=== PATIENT | male | born 1965 | race Caucasian/White ===

== ENCOUNTER 2018-05-26 21:35 | Emergency (ER) | payer OTHER ==
[~2018-05-26] VITALS: Ht 180.3 cm; Wt 100.0 kg
[~2018-05-26 21:35] MED LIST: ASPI-955; ATOR20TA66 PO; CARV6.253 PO; ENOX100D5 SUBCUT; LISI10TA4 PO; METF500T PO; WARF7.5T48 PO
[2018-05-26 22:36] LABS: BASOPHILS # (AUTO) 0.1 X10'3 (0-0.2); BASOPHILS % (AUTO) 0.8 % (0-1); EOSINOPHILS # (AUTO) 0.3 X10'3 (0-0.9); EOSINOPHILS % (AUTO) 4.1 % (0-6); HEMATOCRIT 40.6 % (42.0-52.0); HEMOGLOBIN 13.8 g/dl (14.0-17.9); LYMPHOCYTES # (AUTO) 1.8 X10'3 (1.1-4.8); LYMPHOCYTES % (AUTO) 25.2 % (21-51); MEAN CORPUSCULAR HEMOGLOBIN 31.5 PG (27.0-31.0); MEAN CORPUSCULAR HGB CONC 33.9 % (33.0-36.5); MEAN CORPUSCULAR VOLUME 92.8 FL (78-98); MEAN PLATELET VOLUME 8.5 FL (7.4-10.4); MONOCYTES # (AUTO) 0.8 X10'3 (0-0.9); MONOCYTES % (AUTO) 11.1 % (2-12); NEUTROPHILS # (AUTO) 4.1 X10'3 (1.8-7.7); NEUTROPHILS % (AUTO) 58.8 % (42-75); PLATELET COUNT 160 X10'3 (140-440); RED BLOOD COUNT 4.37 X10'6 (4.70-6.10); RED CELL DISTRIBUTION WIDTH 14.2 % (11.5-14.5)
[2018-05-26 22:49] LABS: INR 3.2 INR; PROTHROMBIN TIME 30.8 SECONDS (9.0-12.0)
[2018-05-26] MEDS ORDERED: phytonadione inj. 1 MG in normal saline 100ml IV soln 99.9 ML IV ONE (23:00)
[2018-05-26] MEDS ORDERED: phytonadione 10 MG/1 ML amp SQ ONE (23:20)
[2018-05-27] VITALS: BP 132/65
== END 2018-05-27 00:03 | disposition home or self-care (01) ==
LOC: ER 21:35
DX: R79.1 Abnormal coagulation profile (principal); I10 Essential (primary) hypertension; E11.9 Type 2 diabetes mellitus without complications; F41.9 Anxiety disorder, unspecified; Z86.73 Personal history of transient ischemic attack (TIA), and cerebral infarction without residual deficits; Z88.1 Allergy status to other antibiotic agents
CPT/HCPCS: 36415; 85025; 85610; 96372; 99283; J3430

== ENCOUNTER 2019-04-19 17:25 | Emergency (ER) | payer OTHER ==
[~2019-04-19] VITALS: Ht 180.3 cm; Wt 104.5 kg
[2019-04-19 18:17] LABS: BASOPHILS % (AUTO) 0.5 % (0-1); EOSINOPHILS # (AUTO) 0.2 X10'3 (0-0.9); EOSINOPHILS % (AUTO) 3.6 % (0-6); HEMATOCRIT 43.7 % (42.0-52.0); HEMOGLOBIN 14.8 g/dl (14.0-17.9); LYMPHOCYTES % (AUTO) 29.5 % (21-51); MEAN CORPUSCULAR HEMOGLOBIN 32.1 PG (27.0-31.0); MEAN CORPUSCULAR HGB CONC 33.9 g/dL (33.0-36.5); MEAN CORPUSCULAR VOLUME 94.8 FL (78-98); MEAN PLATELET VOLUME 8.3 FL (7.4-10.4); MONOCYTES # (AUTO) 0.9 X10'3 (0-0.9); MONOCYTES % (AUTO) 13.3 % (2-12); NEUTROPHILS # (AUTO) 3.5 X10'3 (1.8-7.7); NEUTROPHILS % (AUTO) 53.1 % (42-75); PLATELET COUNT 185 X10'3 (140-440); RED BLOOD COUNT 4.61 X10'6 (4.70-6.10); RED CELL DISTRIBUTION WIDTH 13.7 % (11.5-14.5); WHITE BLOOD COUNT 6.7 X10'3 (4.5-11.0)
[2019-04-19 18:30] LABS: PARTIAL THROMBOPLASTIN TIME 39 SECONDS (22-32)
[2019-04-19 18:34] LABS: ALANINE AMINOTRANSFERASE 25 U/L (12-78); ALBUMIN 3.8 G/DL (3.4-5.0); ALKALINE PHOSPHATASE 65 IU/L (46-116); ANION GAP 7 (8-16); ASPARTATE AMINO TRANSFERASE 20 U/L (10-37); BILIRUBIN,TOTAL 0.4 MG/DL (0.1-1.0); BLOOD UREA NITROGEN 14 MG/DL (7-18); BUN/CREATININE RATIO 17.3 (5.4-32.0); CHLORIDE 103 MMOL/L (99-107); CREATININE 0.81 MG/DL (0.60-1.10); GLUCOSE 160 MG/DL (70-104); POTASSIUM 4.1 MMOL/L (3.5-5.1); SODIUM 138 MMOL/L (135-145); TOTAL CARBON DIOXIDE 27.8 MMOL/L (24-32); TOTAL PROTEIN 7.7 G/DL (6.4-8.2); eGFR > 90 ML/MIN
[2019-04-19 18:38] LABS: CALCIUM 8.9 MG/DL (8.5-10.1)
[2019-04-19 20:22] VITALS: BP 148/84
== END 2019-04-19 20:21 | disposition home or self-care (01) ==
LOC: ER 17:26
DX: I48.20 Chronic atrial fibrillation, unspecified (principal); I10 Essential (primary) hypertension; E11.9 Type 2 diabetes mellitus without complications; Z86.73 Personal history of transient ischemic attack (TIA), and cerebral infarction without residual deficits; Z79.899 Other long term (current) drug therapy; Z79.01 Long term (current) use of anticoagulants; Z88.1 Allergy status to other antibiotic agents
CPT/HCPCS: 36415; 71045; 80053; 84484; 85025; 85610; 85730; 93005; 99284

== ENCOUNTER 2019-06-04 08:40 | Emergency (ER) | payer OTHER ==
[~2019-06-04] VITALS: Ht 180.3 cm; Wt 104.5 kg
[2019-06-04] MEDS ORDERED: TETanus/Pertussis (Acell)/Diphther VAC/PF (Tdap-Adult) 0.5ml syringe IMVAC ONE (09:10)
[2019-06-04] MEDS ORDERED: mupirocin 2% ointment 22GM TP ONE (09:10)
[2019-06-04 09:13] LABS: BASOPHILS # (AUTO) 0.1 X10'3 (0-0.2); BASOPHILS % (AUTO) 0.7 % (0-1); EOSINOPHILS # (AUTO) 0.2 X10'3 (0-0.9); EOSINOPHILS % (AUTO) 2.4 % (0-6); HEMATOCRIT 42.8 % (42.0-52.0); HEMOGLOBIN 14.4 g/dl (14.0-17.9); LYMPHOCYTES # (AUTO) 1.2 X10'3 (1.1-4.8); LYMPHOCYTES % (AUTO) 16.6 % (21-51); MEAN CORPUSCULAR HEMOGLOBIN 31.5 PG (27.0-31.0); MEAN CORPUSCULAR HGB CONC 33.7 g/dL (33.0-36.5); MEAN CORPUSCULAR VOLUME 93.6 FL (78-98); MEAN PLATELET VOLUME 8.2 FL (7.4-10.4); MONOCYTES % (AUTO) 13.7 % (2-12); NEUTROPHILS % (AUTO) 66.6 % (42-75); PLATELET COUNT 202 X10'3 (140-440); RED BLOOD COUNT 4.57 X10'6 (4.70-6.10); RED CELL DISTRIBUTION WIDTH 13.6 % (11.5-14.5); WHITE BLOOD COUNT 7.5 X10'3 (4.5-11.0)
[2019-06-04 09:22] VITALS: BP 133/104
[2019-06-04 09:26] LABS: ALANINE AMINOTRANSFERASE 38 U/L (12-78); ALBUMIN 3.8 G/DL (3.4-5.0); ALBUMIN/GLOBULIN RATIO 0.9 (1.1-1.5); ALKALINE PHOSPHATASE 80 IU/L (46-116); ANION GAP 5 (8-16); ASPARTATE AMINO TRANSFERASE 17 U/L (10-37); BILIRUBIN,TOTAL 0.7 MG/DL (0.1-1.0); BLOOD UREA NITROGEN 12 MG/DL (7-18); BUN/CREATININE RATIO 12.9 (5.4-32.0); CALCIUM 9.1 MG/DL (8.5-10.1); CHLORIDE 104 MMOL/L (99-107); CREATININE 0.93 MG/DL (0.60-1.10); GLUCOSE 170 MG/DL (70-104); POTASSIUM 4.1 MMOL/L (3.5-5.1); SODIUM 142 MMOL/L (135-145); TOTAL CARBON DIOXIDE 32.6 MMOL/L (24-32); TOTAL PROTEIN 8.2 G/DL (6.4-8.2); eGFR 85 ML/MIN
--- NOTE | 2019-06-04 09:42 | NUR ---
visitor at bedside.
[2019-06-04] MEDS ORDERED: SULF1TAB49 PO (09:57)
[2019-06-04] MEDS ORDERED: MUPI22OI30 TP (09:57)
[2019-06-04] MEDS ORDERED: AMOX-580 PO (09:57)
== END 2019-06-04 10:12 | disposition home or self-care (01) ==
LOC: ER 08:40
DX: S91.102A Unspecified open wound of left great toe without damage to nail, initial encounter (principal); E11.42 Type 2 diabetes mellitus with diabetic polyneuropathy; I48.91 Unspecified atrial fibrillation; I10 Essential (primary) hypertension; F41.9 Anxiety disorder, unspecified; Z86.73 Personal history of transient ischemic attack (TIA), and cerebral infarction without residual deficits; Z88.1 Allergy status to other antibiotic agents; Z79.01 Long term (current) use of anticoagulants; Z79.84 Long term (current) use of oral hypoglycemic drugs; Z79.899 Other long term (current) drug therapy; X58.XXXA Exposure to other specified factors, initial encounter; Y93.89 Activity, other specified; Y92.89 Other specified places as the place of occurrence of the external cause; Y99.8 Other external cause status
CPT/HCPCS: 36415; 73660; 80053; 85025; 90471; 90715; 99284

== ENCOUNTER 2022-01-23 15:23 | Emergency (ER) | payer SELFPAY ==
[~2022-01-23] VITALS: Ht 180.3 cm; Wt 106.8 kg
[~2022-01-23 15:23] MED LIST changes: -ASPI-955; +ASPI-955 PO; +LISI10TA27 PO; -LISI10TA4 PO
[2022-01-23 15:28] VITALS: BP 174/64
[2022-01-24] MEDS ORDERED: METF-438 PO (15:04)
[2022-01-24] MEDS ORDERED: LISI20TA28 PO (15:04)
[2022-01-24] MEDS ORDERED: ATOR10TA70 PO (15:04)
[2022-01-24] MEDS ORDERED: CARV6.2553 PO (15:04)
[2022-01-24] MEDS ORDERED: WARF4TAB69 PO (15:34)
[2022-01-24] MEDS ORDERED: WARF1TAB83 PO (15:34)
[2022-01-24] MEDS ORDERED: OMEG1CAP45 PO (15:57)
[2022-01-24] MEDS ORDERED: OMEG1CAP13 PO (15:57)
== END 2022-01-24 00:52 | disposition left against medical advice (07) ==
LOC: ER 15:24
DX: R60.0 Localized edema (principal); Z53.21 Procedure and treatment not carried out due to patient leaving prior to being seen by health care provider

== ENCOUNTER 2022-01-24 08:16 | Inpatient (IN) | payer OTHER ==
[~2022-01-24] VITALS: Ht 180.3 cm; Wt 106.8 kg
[2022-01-24] MEDS ORDERED: acetaminophen 325mg tablet PO STA (10:47)
[2022-01-24] MEDS ORDERED: normal saline 1000ML IV soln IV ONE (10:50)
[2022-01-24] MEDS ORDERED: vancomycin/NS 1 GM ADD-VANTAGE 250 ML IV ONE (10:50)
[2022-01-24] MEDS ORDERED: piperacillin/tazo 3.375gm/50ml 50 ML IV ONE (10:50)
[2022-01-24 11:33] LABS: BASOPHILS % (AUTO) 0.2 % (0-1); EOSINOPHILS # (AUTO) 0.2 X10'3 (0-0.9); EOSINOPHILS % (AUTO) 2.1 % (0-6); HEMATOCRIT 41.2 % (42.0-52.0); LYMPHOCYTES # (AUTO) 0.9 X10'3 (1.1-4.8); LYMPHOCYTES % (AUTO) 10.1 % (21-51); MEAN CORPUSCULAR HEMOGLOBIN 31.8 PG (27.0-31.0); MEAN CORPUSCULAR HGB CONC 34.1 g/dL (33.0-36.5); MEAN CORPUSCULAR VOLUME 93.3 FL (78-98); MEAN PLATELET VOLUME 7.7 FL (7.4-10.4); MONOCYTES # (AUTO) 1.2 X10'3 (0-0.9); MONOCYTES % (AUTO) 13.1 % (2-12); NEUTROPHILS # (AUTO) 6.7 X10'3 (1.8-7.7); NEUTROPHILS % (AUTO) 74.5 % (42-75); PLATELET COUNT 216 X10'3 (140-440); RED BLOOD COUNT 4.42 X10'6 (4.70-6.10)
[2022-01-24 11:56] LABS: ALANINE AMINOTRANSFERASE 24 U/L (12-78); ALBUMIN 3.5 G/DL (3.4-5.0); ALBUMIN/GLOBULIN RATIO 0.7 (1.1-1.5); ALKALINE PHOSPHATASE 78 IU/L (46-116); ANION GAP 9 (8-16); ASPARTATE AMINO TRANSFERASE 15 U/L (10-37); BILIRUBIN,TOTAL 0.6 MG/DL (0.1-1.0); BLOOD UREA NITROGEN 13 MG/DL (7-18); BUN/CREATININE RATIO 14.1 (5.4-32.0); CALCIUM 9.5 MG/DL (8.5-10.1); CHLORIDE 97 MMOL/L (99-107); CREATININE 0.92 MG/DL (0.60-1.10); GLUCOSE 225 MG/DL (70-104); POTASSIUM 3.9 MMOL/L (3.5-5.1); SODIUM 136 MMOL/L (135-145); TOTAL CARBON DIOXIDE 29.8 MMOL/L (24-32); TOTAL PROTEIN 8.5 G/DL (6.4-8.2); eGFR 85 ML/MIN
[2022-01-24 12:20] LABS: C-REACTIVE PROTEIN 10.12 MG/DL (0.0-0.5)
[2022-01-24] MEDS ORDERED: potassium CL 10mEq/100ml bag 100 ML IV PRN (13:30)
[2022-01-24] MEDS ORDERED: ondansetron/PF 4mg/2ml inj IV PRN (13:30)
[2022-01-24] MEDS ORDERED: mag hydrox/Alum hydrox/simeth 30ml oral suspension PO PRN (13:30)
[2022-01-24] MEDS ORDERED: morphine 2 MG/ML inj. syringe IV PRN ×2 (13:30)
[2022-01-24] MEDS ORDERED: magnesium 2GM in 50ml NS 50 ML IV PRN (13:30)
[2022-01-24] MEDS ORDERED: POTASSIUM BICARB 20meq eff tab 20 MEQ TABLET.EFF PO PRN (13:30)
[2022-01-24] MEDS ORDERED: magnesium Cl slow-release 64mg tablet PO PRN (13:30)
[2022-01-24] MEDS ORDERED: magnesium hydroxide 30ml (MOM) UD suspension PO PRN (13:30)
[2022-01-24] MEDS ORDERED: acetaminophen 325mg tablet PO PRN (13:30)
[2022-01-24] MEDS ORDERED: magnesium 4gm in 100ml NS 100 ML IV PRN (13:30)
[2022-01-24] MEDS: normal saline 1000ml 1,000 ML IV SCH (14:04)
--- NOTE | 2022-01-24 14:27 | NUR ---
Report given to CESAR Pate on the Ortho Unit.
[2022-01-24 14:38] LABS: MAGNESIUM 1.6 MG/DL (1.5-2.4); POTASSIUM 3.6 MMOL/L (3.5-5.1)
[2022-01-24 14:50] VITALS: BP 169/110
[2022-01-24] MEDS ORDERED: METF-438 PO (15:04)
[2022-01-24] MEDS ORDERED: LISI20TA28 PO (15:04)
[2022-01-24] MEDS ORDERED: ATOR10TA70 PO (15:04)
[2022-01-24] MEDS ORDERED: CARV6.2553 PO (15:04)
[2022-01-24 15:15] VITALS: BP 150/78
[2022-01-24] MEDS ORDERED: WARF4TAB69 PO (15:34)
[2022-01-24] MEDS ORDERED: WARF1TAB83 PO (15:34)
[2022-01-24] MEDS ORDERED: OMEG1CAP13 PO (15:57)
[2022-01-24] MEDS ORDERED: OMEG1CAP45 PO (15:57)
[2022-01-24 18:00] VITALS: BP 165/89
--- NOTE | 2022-01-24 18:00 | NUR ---
CLINICAL TRIAL EDUCATOR documentation: I have reviewed and agree with all interventions, assessments performed and documented by manpreet Aguilar LVN.
[2022-01-24] MEDS: levoFLOXACIN-Levaquin 750MG/D5 150 ML IV SCH (18:09)
--- NOTE | 2022-01-24 18:46 | NUR ---
Problems reprioritized. Patient report given, questions answered & plan of care reviewed with CESAR Verdin.
[2022-01-24] MEDS: docusate sod 100mg capsule PO SCH (20:00)
[2022-01-24] MEDS: K and/or MAG REPLACEMENT MC SCH (20:00)
[2022-01-24] MEDS: aspirin 81mg, enteric-coated 1 TAB TABLET.DR PO SCH (20:12)
[2022-01-24] MEDS: atorvastatin 10mg tablet PO SCH (20:12)
[2022-01-24] MEDS: carvedilol 6.25mg tablet PO SCH (20:12)
[2022-01-24 20:15] VITALS: BP 146/82
[2022-01-24] MEDS ORDERED: dextrose 50%-water 50ml dispensing syringe IV PRN ×2 (22:05)
[2022-01-24] MEDS ORDERED: DEXTROSE 15 GM of carb/4 tabs (each vial/BOTTLE has 4 tablets) PO PRN ×2 (22:05)
[2022-01-24] MEDS ORDERED: glucagon, human recombinant 1mg kit SUBCUT PRN (22:05)
[2022-01-24] MEDS ORDERED: MESSAGE TO PHARMACY PO ONE (22:05)
[2022-01-24] MEDS: insulin glargine (Lantus) pen - multi-dose SQ SCH (23:01)
[2022-01-25] VITALS (20 sets, daily range): BP systolic 140–177; BP diastolic 81–106
[2022-01-25] MEDS: vancomycin/NS 1 GM ADD-VANTAGE 250 ML IV SCH ×2 (00:25→13:17)
[2022-01-25] MEDS: normal saline 1000ml 1,000 ML IV SCH ×3 (00:25→20:09)
--- NOTE | 2022-01-25 06:31 | NUR ---
Problems reprioritized. Patient report given, questions answered & plan of care reviewed with Tasia GUERRERO.
[2022-01-25] MEDS: enoxaparin 40mg/0.4ml syringe SUBCUT SCH (08:00)
[2022-01-25] MEDS: levoFLOXACIN-Levaquin 750MG/D5 150 ML IV SCH (08:04)
[2022-01-25] MEDS: OMEGA-3/DHA/EPA/FISH OIL 1 EACH CAPSULE.DR PO SCH (08:04)
[2022-01-25] MEDS: lisinopril 20mg tablet PO SCH (08:05)
[2022-01-25] MEDS: carvedilol 6.25mg tablet PO SCH ×2 (08:06→20:03)
[2022-01-25] MEDS: docusate sod 100mg capsule PO SCH ×2 (08:07→20:03)
[2022-01-25 09:09] LABS: BASOPHILS % (AUTO) 0.4 % (0-1); EOSINOPHILS # (AUTO) 0.2 X10'3 (0-0.9); EOSINOPHILS % (AUTO) 2.7 % (0-6); HEMOGLOBIN 12.1 g/dl (14.0-17.9); MEAN CORPUSCULAR HEMOGLOBIN 31.3 PG (27.0-31.0); MEAN CORPUSCULAR HGB CONC 33.5 g/dL (33.0-36.5); MEAN CORPUSCULAR VOLUME 93.4 FL (78-98); MONOCYTES # (AUTO) 0.9 X10'3 (0-0.9); MONOCYTES % (AUTO) 12.3 % (2-12); NEUTROPHILS % (AUTO) 70.6 % (42-75); PLATELET COUNT 198 X10'3 (140-440); RED BLOOD COUNT 3.86 X10'6 (4.70-6.10); WHITE BLOOD COUNT 7.1 X10'3 (4.5-11.0)
[2022-01-25 09:16] LABS: ALBUMIN 2.7 G/DL (3.4-5.0); ANION GAP 9 (8-16); BLOOD UREA NITROGEN 7 MG/DL (7-18); CALCIUM 7.9 MG/DL (8.5-10.1); CHLORIDE 101 MMOL/L (99-107); CREATININE 0.78 MG/DL (0.60-1.10); GLUCOSE 153 MG/DL (70-104); MAGNESIUM 1.6 MG/DL (1.5-2.4); POTASSIUM 3.6 MMOL/L (3.5-5.1); SODIUM 135 MMOL/L (135-145); TOTAL CARBON DIOXIDE 25.4 MMOL/L (24-32); eGFR > 90 ML/MIN
[2022-01-25] MEDS: K and/or MAG REPLACEMENT MC SCH ×2 (09:30→20:00)
[2022-01-25] MEDS: insulin Lispro (HumaLOG) vial - multi-dose SQ SCH ×2 (09:39→19:10)
--- NOTE | 2022-01-25 14:30 | NUR ---
Pt to OR at 1430.
--- NOTE | 2022-01-25 14:42 | NUR ---
[facility] Nursing consult request received for evaluation of left foot wound. Deferred secondary to planned surgical intervention w/Dr. Miguel today.
[2022-01-25] MEDS ORDERED: morphine 2 MG/ML inj. syringe IV PRN (14:55)
[2022-01-25] MEDS ORDERED: morphine 4 MG/ML inj SYRINge IV PRN (14:55)
[2022-01-25] MEDS ORDERED: ondansetron/PF 4mg/2ml inj IV PRN (14:55)
[2022-01-25] MEDS ORDERED: meperidine/PF 25mg/ml syringe IV PRN ×3 (14:55)
[2022-01-25] MEDS ORDERED: ringers solution, lacted 1,000 ML IV SCH (14:55)
[2022-01-25] MEDS ORDERED: proCHLORperazine 10 MG/2 ml inj IV PRN (14:55)
[2022-01-25] MEDS ORDERED: bacitracin 15gm ointment TP ONE (14:59)
--- NOTE | 2022-01-25 15:10 | NUR ---
DM Consult: Pt hx T2DM A1C 7.8% takes metformin at home admit DX L foot cellulitis, likely osteomyelitis L great toe w/ 4th toe abscess per EMR. Currently NPO for OR today for L hallux vs partial 1st ray amputation per MD note. Pt hx non-healing wound to L great toe past 10 years likely influencing A1C. Pt would benefit from DM ed once appropriate post-op prior to discharge. Addendum: 01/25/22 at [address] Amended: Links added.
[2022-01-25] MEDS ORDERED: sevoflurane 250ml liquid IH ONE (15:11)
[2022-01-25] MEDS ORDERED: fentaNYL/PF 50MCG/1 ML 2ML syringe ONE (15:11)
[2022-01-25] MEDS ORDERED: midazolam 1 mg/ML 2ml injection ONE (15:12)
[2022-01-25] MEDS ORDERED: propofol inj 20 ML IV ONE (15:12)
--- NOTE | 2022-01-25 16:33 | NUR ---
Received from OR via ORTHO BED WITH [facility] , accompanied by Anesthesiologist JAMAL and report given by Anesthesiolgist.PATIENT WITH 20GPIV IN RIGHT UE RUNNING LR AT 100. LEFT FOOT WITH DIAMANTE BANDAGE PRESENT. PATIENT WITH TOES EXPOSED AND WITH + CAP REFILL TO TOES. ELEVATED FOOT OF BD UPON ARRIVAL. VSS/ 10L MASK ON WITH 100% SATURATIONS. Addendum: 01/25/22 at 1642 by Luis Alfredo Gatica RN, RN Amended: Links added.
--- NOTE | 2022-01-25 17:09 | NUR ---
BG OF 126 IN RECOVERY ROOM Addendum: 01/25/22 at 1709 by Luis Alfredo Gatica RN RN Amended: Links added.
[2022-01-25] MEDS ORDERED: labetalol 20mg/4ml (5mg/ml) syringe IV PRN (17:10)
[2022-01-25] MEDS ORDERED: ipratropium/albuterol 3ml nebule NEB PRN (17:25)
--- NOTE | 2022-01-25 17:53 | NUR ---
CARE OF PATIENT AND REPORT HAS BEEN CALLED. ALL QUESTIONS ANSWERED TO ACCEPTING RN. PATIENT HAS MET ALL CRITERIA FOR TRANSFER ORTHO FLOOR. VSS. DRESSINGS INTACT. BED LOW, CALL LIGHT PRESENT AND 2 RAILS UP. RN PRESENT TO ACCEPT. VSS MUCH LESS COUGHING AT TIME OF TRANSFER. FOOT OF BED GATCHED. NO DRAINAGE PRESENT TO LEFT FOOT. DENIES PAIN. 93-94% SATURATIONS ON 4LPM. CARE ASSUMED BY SHARON Addendum: 01/25/22 at 1806 by Luis Alfredo Laws - CESAR RN Amended: Links added.
--- NOTE | 2022-01-25 18:15 | NUR ---
Report was received via telephone,and pt received back to room 4014B at 1750 accompanied by CESAR Lobato (RR). VS on return = T 99.6, HR 83, RR 16, 93% 4L/NC, BP 162/84, 0 pain. Pt A&Ox4 and conversing, states he is hungry and denies pain. Pt described upper R chest w/ "rattley" sensation w/ expiration matching Luis Alfredo's report from RR. L foot is in open splint/cast w/ 2nd and 3rd toes visible, which have moderate [employer]. Report given to oncoming nurse CESAR Verdin.
--- NOTE | 2022-01-25 18:30 | NUR ---
Patient report given, questions answered & plan of care reviewed with CESAR Verdin.
[2022-01-25] MEDS: atorvastatin 10mg tablet PO SCH (20:03)
[2022-01-25] MEDS: aspirin 81mg, enteric-coated 1 TAB TABLET.DR PO SCH (20:03)
[2022-01-25] MEDS ORDERED: insulin glargine (Lantus) pen - multi-dose SQ SCH (21:00)
[2022-01-25] MEDS: insulin glargine (Lantus) pen - multi-dose SQ SCH (21:17)
[2022-01-25] MEDS ORDERED: HYDROcodone/acetaminophen 10/325mg tab PO PRN (21:45)
[2022-01-25] MEDS: HYDROcodone/acetaminophen 5mg/325mg tablet PO PRN (21:54)
[2022-01-26] MEDS: vancomycin/NS 1 GM ADD-VANTAGE 250 ML IV SCH ×2 (00:54→12:22)
[2022-01-26 02:00] VITALS: BP 123/69
--- NOTE | 2022-01-26 03:35 | NUR ---
I have reviewed and agree with all interventions, assessments performed and documented by Moira ORTIZ.
[2022-01-26] MEDS: HYDROcodone/acetaminophen 5mg/325mg tablet PO PRN ×2 (04:18→12:10)
[2022-01-26 06:00] VITALS: BP 161/95
--- NOTE | 2022-01-26 06:40 | NUR ---
Problems reprioritized. Patient report given, questions answered & plan of care reviewed with Sue GUERRERO.
[2022-01-26 06:58] LABS: BASOPHILS % (AUTO) 0.3 % (0-1); EOSINOPHILS # (AUTO) 0.1 X10'3 (0-0.9); EOSINOPHILS % (AUTO) 1.4 % (0-6); HEMATOCRIT 35.4 % (42.0-52.0); HEMOGLOBIN 12.2 g/dl (14.0-17.9); LYMPHOCYTES # (AUTO) 0.8 X10'3 (1.1-4.8); LYMPHOCYTES % (AUTO) 9.8 % (21-51); MEAN CORPUSCULAR HEMOGLOBIN 31.7 PG (27.0-31.0); MEAN CORPUSCULAR HGB CONC 34.5 g/dL (33.0-36.5); MEAN PLATELET VOLUME 7.6 FL (7.4-10.4); MONOCYTES # (AUTO) 1.1 X10'3 (0-0.9); MONOCYTES % (AUTO) 13.1 % (2-12); NEUTROPHILS # (AUTO) 6.5 X10'3 (1.8-7.7); NEUTROPHILS % (AUTO) 75.4 % (42-75); PLATELET COUNT 200 X10'3 (140-440); RED BLOOD COUNT 3.85 X10'6 (4.70-6.10); RED CELL DISTRIBUTION WIDTH 13.9 % (11.5-14.5); WHITE BLOOD COUNT 8.6 X10'3 (4.5-11.0)
[2022-01-26 07:13] LABS: ALBUMIN 2.8 G/DL (3.4-5.0); ANION GAP 11 (8-16); BLOOD UREA NITROGEN 8 MG/DL (7-18); CALCIUM 8.1 MG/DL (8.5-10.1); CHLORIDE 104 MMOL/L (99-107); CREATININE 0.73 MG/DL (0.60-1.10); GLUCOSE 133 MG/DL (70-104); MAGNESIUM 1.6 MG/DL (1.5-2.4); POTASSIUM 3.5 MMOL/L (3.5-5.1); SODIUM 139 MMOL/L (135-145); TOTAL CARBON DIOXIDE 24.4 MMOL/L (24-32); eGFR > 90 ML/MIN
[2022-01-26] MEDS: levoFLOXACIN-Levaquin 750MG/D5 150 ML IV SCH (07:53)
[2022-01-26] MEDS: carvedilol 6.25mg tablet PO SCH ×2 (07:54→21:23)
[2022-01-26] MEDS: OMEGA-3/DHA/EPA/FISH OIL 1 EACH CAPSULE.DR PO SCH (07:54)
[2022-01-26] MEDS: enoxaparin 40mg/0.4ml syringe SUBCUT SCH (07:54)
[2022-01-26] MEDS: docusate sod 100mg capsule PO SCH ×2 (07:54→21:23)
[2022-01-26] MEDS: lisinopril 20mg tablet PO SCH (07:55)
[2022-01-26] MEDS: K and/or MAG REPLACEMENT MC SCH ×2 (08:00→20:00)
[2022-01-26] MEDS: normal saline 1000ml 1,000 ML IV SCH (08:03)
[2022-01-26] MEDS: insulin Lispro (HumaLOG) vial - multi-dose SQ SCH ×3 (08:53→19:59)
[2022-01-26] MEDS ORDERED: benzocaine/menthol oral lozeng 1 EACH BOX MM PRN (09:45)
[2022-01-26] MEDS ORDERED: furosemide 40mg/4ml inj IV ONE (09:45)
[2022-01-26 10:00] VITALS: BP 141/86
[2022-01-26] MEDS ORDERED: HALLS - SOOTHE MENTHOL 1.8 MG cough drop LOZENGE MM PRN (10:44)
[2022-01-26] MEDS ORDERED: VANCOMYCIN LEVEL IV ONE (12:30)
[2022-01-26 14:48] VITALS: BP 147/83
[2022-01-26] MEDS ORDERED: zolpidem 5mg tablet PO PRN (17:25)
[2022-01-26] MEDS: aspirin 81mg, enteric-coated 1 TAB TABLET.DR PO SCH (21:23)
[2022-01-26] MEDS: atorvastatin 10mg tablet PO SCH (21:23)
[2022-01-26] MEDS: insulin glargine (Lantus) pen - multi-dose SQ SCH (21:35)
[2022-01-27] MEDS: vancomycin 1,750 MG in NS 350ml IV soln IV SCH ×2 (00:20→15:35)
[2022-01-27 06:00] VITALS: BP 184/101
--- NOTE | 2022-01-27 06:41 | NUR ---
Problems reprioritized. Patient report given, questions answered & plan of care reviewed with CARLA GUERRERO.
[2022-01-27 06:56] LABS: ALBUMIN 2.8 G/DL (3.4-5.0); ANION GAP 10 (8-16); BLOOD UREA NITROGEN 8 MG/DL (7-18); CALCIUM 7.7 MG/DL (8.5-10.1); CHLORIDE 102 MMOL/L (99-107); CREATININE 0.73 MG/DL (0.60-1.10); GLUCOSE 146 MG/DL (70-104); MAGNESIUM 1.7 MG/DL (1.5-2.4); POTASSIUM 3.1 MMOL/L (3.5-5.1); SODIUM 136 MMOL/L (135-145); TOTAL CARBON DIOXIDE 23.8 MMOL/L (24-32); eGFR > 90 ML/MIN
[2022-01-27 07:05] LABS: BASOPHILS % (AUTO) 0.2 % (0-1); EOSINOPHILS # (AUTO) 0.1 X10'3 (0-0.9); EOSINOPHILS % (AUTO) 0.8 % (0-6); HEMATOCRIT 35.8 % (42.0-52.0); HEMOGLOBIN 12.2 g/dl (14.0-17.9); LYMPHOCYTES # (AUTO) 0.9 X10'3 (1.1-4.8); LYMPHOCYTES % (AUTO) 11.1 % (21-51); MEAN CORPUSCULAR HEMOGLOBIN 31.4 PG (27.0-31.0); MEAN CORPUSCULAR VOLUME 92.1 FL (78-98); MEAN PLATELET VOLUME 8.1 FL (7.4-10.4); MONOCYTES # (AUTO) 1.1 X10'3 (0-0.9); MONOCYTES % (AUTO) 14.4 % (2-12); NEUTROPHILS # (AUTO) 5.7 X10'3 (1.8-7.7); NEUTROPHILS % (AUTO) 73.5 % (42-75); PLATELET COUNT 223 X10'3 (140-440); RED BLOOD COUNT 3.89 X10'6 (4.70-6.10); RED CELL DISTRIBUTION WIDTH 13.7 % (11.5-14.5); WHITE BLOOD COUNT 7.8 X10'3 (4.5-11.0)
[2022-01-27] MEDS: K and/or MAG REPLACEMENT MC SCH ×2 (08:00→20:00)
[2022-01-27] MEDS: OMEGA-3/DHA/EPA/FISH OIL 1 EACH CAPSULE.DR PO SCH (08:07)
[2022-01-27] MEDS: lisinopril 20mg tablet PO SCH (08:08)
[2022-01-27] MEDS: docusate sod 100mg capsule PO SCH ×2 (08:08→21:23)
[2022-01-27] MEDS: POTASSIUM BICARB 20meq eff tab 20 MEQ TABLET.EFF PO PRN ×3 (08:08→17:45)
[2022-01-27] MEDS: carvedilol 6.25mg tablet PO SCH ×2 (08:08→21:22)
[2022-01-27] MEDS: enoxaparin 40mg/0.4ml syringe SUBCUT SCH (08:10)
[2022-01-27] MEDS: insulin Lispro (HumaLOG) vial - multi-dose SQ SCH ×3 (08:54→19:02)
--- NOTE | 2022-01-27 09:21 | NUR ---
Provided pt w/ written and verbal DM ed w/ RD contact info Addendum: 01/27/22 at [address] Amended: Links added.
[2022-01-27] MEDS: levoFLOXACIN-Levaquin 750MG/D5 150 ML IV SCH (09:27)
[2022-01-27 10:00] VITALS: BP 125/73
[2022-01-27] MEDS ORDERED: MESSAGE TO NURSING IV ONE (14:05)
[2022-01-27] MEDS ORDERED: furosemide 40mg/4ml inj IV ONE (15:55)
[2022-01-27 17:30] VITALS: BP 146/81
[2022-01-27] MEDS ORDERED: magnesium 4gm in 100ml NS 100 ML IV PRN (17:30)
[2022-01-27] MEDS ORDERED: potassium CL 10mEq/100ml bag 100 ML IV PRN (17:30)
[2022-01-27] MEDS ORDERED: magnesium Cl slow-release 64mg tablet PO PRN (17:30)
[2022-01-27] MEDS ORDERED: POTASSIUM BICARB 20meq eff tab 20 MEQ TABLET.EFF PO PRN (17:30)
[2022-01-27] MEDS ORDERED: magnesium 2GM in 50ml NS 50 ML IV PRN (17:30)
--- NOTE | 2022-01-27 18:35 | NUR ---
Patient in room ORTHO 4014. I have received report from CESAR Rogers and had the opportunity to ask questions and assume patient care. Addendum: 01/27/22 at 1914 by Jakub Hopkins RN Amended: Links added.
--- NOTE | 2022-01-27 19:12 | NUR ---
Report given to Olivia GUERRERO, patient walking out of restroom and ate dinner, no current distress or sob noted at this time
[2022-01-27] MEDS ORDERED: warfarin 3mg tablet PO ONE (21:00)
[2022-01-27 21:15] VITALS: BP 153/86
[2022-01-27] MEDS: aspirin 81mg, enteric-coated 1 TAB TABLET.DR PO SCH (21:22)
[2022-01-27] MEDS: atorvastatin 10mg tablet PO SCH (21:22)
[2022-01-27] MEDS: insulin glargine (Lantus) pen - multi-dose SQ SCH (21:30)
[2022-01-27 22:23] VITALS: BP 138/82
[2022-01-28] MEDS ORDERED: VANCOMYCIN LEVEL IV ONE ×2 (00:30→12:30)
[2022-01-28] MEDS: vancomycin 1,750 MG in NS 350ml IV soln IV SCH (00:51)
[2022-01-28 01:26] LABS: ALBUMIN 2.6 G/DL (3.4-5.0); ANION GAP 11 (8-16); BLOOD UREA NITROGEN 11 MG/DL (7-18); BUN/CREATININE RATIO 12.8 (5.4-32.0); CALCIUM 8.1 MG/DL (8.5-10.1); CHLORIDE 102 MMOL/L (99-107); CREATININE 0.86 MG/DL (0.60-1.10); GLUCOSE 148 MG/DL (70-104); MAGNESIUM 1.7 MG/DL (1.5-2.4); POTASSIUM 3.3 MMOL/L (3.5-5.1); SODIUM 138 MMOL/L (135-145); TOTAL CARBON DIOXIDE 25.1 MMOL/L (24-32); VANCOMYCIN,TROUGH 12.1 UG/ML (6.0-14.0); eGFR > 90 ML/MIN
--- NOTE | 2022-01-28 01:26 | NUR ---
ASSUMED CARE OF PATIENT WITH VERBAL REPORT FROM AUSTIN GUERRERO AT 1511
[2022-01-28 06:00] VITALS: BP 136/83
[2022-01-28 06:11] LABS: BASOPHILS # (AUTO) 0.1 X10'3 (0-0.2); BASOPHILS % (AUTO) 0.9 % (0-1); EOSINOPHILS # (AUTO) 0.2 X10'3 (0-0.9); EOSINOPHILS % (AUTO) 2.8 % (0-6); HEMATOCRIT 35.9 % (42.0-52.0); HEMOGLOBIN 12.3 g/dl (14.0-17.9); LYMPHOCYTES # (AUTO) 1.1 X10'3 (1.1-4.8); LYMPHOCYTES % (AUTO) 15.3 % (21-51); MEAN CORPUSCULAR HEMOGLOBIN 31.5 PG (27.0-31.0); MEAN CORPUSCULAR HGB CONC 34.2 g/dL (33.0-36.5); MEAN PLATELET VOLUME 7.6 FL (7.4-10.4); MONOCYTES % (AUTO) 14.4 % (2-12); NEUTROPHILS # (AUTO) 4.7 X10'3 (1.8-7.7); NEUTROPHILS % (AUTO) 66.6 % (42-75); PLATELET COUNT 221 X10'3 (140-440); RED CELL DISTRIBUTION WIDTH 13.6 % (11.5-14.5); WHITE BLOOD COUNT 7.1 X10'3 (4.5-11.0)
--- NOTE | 2022-01-28 06:34 | NUR ---
Problems reprioritized. Patient report given, questions answered & plan of care reviewed with EDIE GUERRERO.
[2022-01-28] MEDS: furosemide 40mg/4ml inj IV SCH (07:41)
[2022-01-28] MEDS: docusate sod 100mg capsule PO SCH ×2 (07:41→20:59)
[2022-01-28] MEDS: OMEGA-3/DHA/EPA/FISH OIL 1 EACH CAPSULE.DR PO SCH (07:42)
[2022-01-28] MEDS: carvedilol 6.25mg tablet PO SCH ×2 (07:42→21:01)
[2022-01-28] MEDS: lisinopril 20mg tablet PO SCH (07:42)
[2022-01-28] MEDS: enoxaparin 40mg/0.4ml syringe SUBCUT SCH (07:46)
[2022-01-28] MEDS: K and/or MAG REPLACEMENT MC SCH ×2 (08:00→20:00)
[2022-01-28] MEDS: insulin Lispro (HumaLOG) vial - multi-dose SQ SCH ×3 (08:03→19:12)
--- NOTE | 2022-01-28 08:08 | NUR ---
Initial: Pt admitted w/ left foot infection with possible osteomyelitis of left big toe, fourth toe abscess, status post amputation of first and fourth toe per EMR. Currently on Carb control diet w/ mostly 75-100% intake of meals, meeting approximately 85% of est energy needs and 100% of est protein needs. M 01/26 receiving routine colace. No nutrition intervention implemented at this time, will continue to monitor. Recs; 1. Continue Carb control diet as tolerated 2. Bowel care per rx 3. Scaled wts Addendum: 01/28/22 at [address] Amended: Links added.
[2022-01-28 10:00] VITALS: BP 150/65
[2022-01-28] MEDS ORDERED: levoFLOXACIN 750MG TABLET PO SCH (11:00)
[2022-01-28] MEDS: POTASSIUM BICARB 20meq eff tab 20 MEQ TABLET.EFF PO PRN ×2 (11:04→19:16)
--- NOTE | 2022-01-28 11:36 | NUR ---
Per patient, he had taken Amoxicillin before without issue.
--- NOTE | 2022-01-28 12:24 | NUR ---
DIABETIC FOOT CARE EDUCATION PROVIDED BY WOUND CARE * Wash your feet daily with lukewarm water and soap. * Dry your feet well, especially between the toes. * Keep the skin moisturized with lotion, but do not apply it between the toes. * Check your feet for blisters, cuts or sores. * Use an emery board to shape your toenails even with the ends of your toes. * Change daily into clean, soft socks or stockings, not too big or too small. * Keep your feet warm and dry. * Preferably wear special padded socks and shoes that fit well. * Never walk barefoot indoors or outdoors. * Examine your shoes everyday for cracks, jana, nails or anything that could hurt your feet. * Tell your doctor if you find any of these problems or have any concerns after examining your feet. Addendum: 01/28/22 at 1225 by Celia Saeed LVN Amended: Links added.
[2022-01-28 14:00] VITALS: BP 156/88
[2022-01-28] MEDS: amox tr/potassium clavulanate 875/125mg TAB PO SCH (17:29)
[2022-01-28 18:30] VITALS: BP 159/94
[2022-01-28] MEDS: atorvastatin 10mg tablet PO SCH (21:00)
[2022-01-28] MEDS ORDERED: warfarin 10mg tablet PO ONE (21:00)
[2022-01-28] MEDS: aspirin 81mg, enteric-coated 1 TAB TABLET.DR PO SCH (21:01)
[2022-01-28] MEDS: insulin glargine (Lantus) pen - multi-dose SQ SCH (21:04)
[2022-01-28] MEDS: HYDROcodone/acetaminophen 5mg/325mg tablet PO PRN (21:06)
[2022-01-28 22:00] VITALS: BP 156/85
[2022-01-29 05:00] VITALS: BP 144/84
[2022-01-29 06:20] LABS: ALBUMIN 2.6 G/DL (3.4-5.0); ANION GAP 9 (8-16); BLOOD UREA NITROGEN 11 MG/DL (7-18); BUN/CREATININE RATIO 13.6 (5.4-32.0); CALCIUM 7.9 MG/DL (8.5-10.1); CHLORIDE 103 MMOL/L (99-107); CREATININE 0.81 MG/DL (0.60-1.10); GLUCOSE 106 MG/DL (70-104); POTASSIUM 3.4 MMOL/L (3.5-5.1); SODIUM 139 MMOL/L (135-145); TOTAL CARBON DIOXIDE 26.6 MMOL/L (24-32); eGFR > 90 ML/MIN
[2022-01-29 06:22] LABS: BASOPHILS % (AUTO) 0.3 % (0-1); EOSINOPHILS # (AUTO) 0.2 X10'3 (0-0.9); HEMATOCRIT 34.7 % (42.0-52.0); HEMOGLOBIN 11.9 g/dl (14.0-17.9); LYMPHOCYTES # (AUTO) 1.3 X10'3 (1.1-4.8); LYMPHOCYTES % (AUTO) 22.4 % (21-51); MEAN CORPUSCULAR HEMOGLOBIN 31.4 PG (27.0-31.0); MEAN CORPUSCULAR HGB CONC 34.4 g/dL (33.0-36.5); MEAN CORPUSCULAR VOLUME 91.2 FL (78-98); MONOCYTES # (AUTO) 0.8 X10'3 (0-0.9); MONOCYTES % (AUTO) 14.2 % (2-12); NEUTROPHILS # (AUTO) 3.5 X10'3 (1.8-7.7); NEUTROPHILS % (AUTO) 59.1 % (42-75); PLATELET COUNT 252 X10'3 (140-440); RED BLOOD COUNT 3.81 X10'6 (4.70-6.10); RED CELL DISTRIBUTION WIDTH 13.5 % (11.5-14.5); WHITE BLOOD COUNT 5.9 X10'3 (4.5-11.0)
[2022-01-29] MEDS: K and/or MAG REPLACEMENT MC SCH ×2 (08:00→20:00)
[2022-01-29] MEDS: furosemide 40mg/4ml inj IV SCH (09:50)
[2022-01-29] MEDS: lisinopril 20mg tablet PO SCH (09:50)
[2022-01-29] MEDS: amox tr/potassium clavulanate 875/125mg TAB PO SCH ×2 (09:50→17:47)
[2022-01-29] MEDS: OMEGA-3/DHA/EPA/FISH OIL 1 EACH CAPSULE.DR PO SCH (09:50)
[2022-01-29] MEDS: carvedilol 6.25mg tablet PO SCH ×2 (09:50→21:00)
[2022-01-29] MEDS: docusate sod 100mg capsule PO SCH ×2 (09:50→20:59)
[2022-01-29] MEDS: enoxaparin 40mg/0.4ml syringe SUBCUT SCH (09:51)
[2022-01-29 10:00] VITALS: BP 164/83
[2022-01-29] MEDS: POTASSIUM BICARB 20meq eff tab 20 MEQ TABLET.EFF PO PRN ×2 (10:01→19:21)
[2022-01-29] MEDS: insulin Lispro (HumaLOG) vial - multi-dose SQ SCH ×2 (14:27→19:12)
--- NOTE | 2022-01-29 16:29 | NUR ---
Paged Dr. Bui PAGER ID: [phone] MESSAGE: O/N Bal GUERRERO ext [phone] RE: Weston Linn. Patient requesting to be discharge today
--- NOTE | 2022-01-29 16:57 | NUR ---
I called [facility] office to find out the status of pathology report. I spoke to Taylor at the office who told me that they received the specimen for this patient but it was "not finished yet". Patient was informed about this.
[2022-01-29 19:00] VITALS: BP 147/96
[2022-01-29] MEDS: aspirin 81mg, enteric-coated 1 TAB TABLET.DR PO SCH (21:00)
[2022-01-29] MEDS: atorvastatin 10mg tablet PO SCH (21:00)
[2022-01-29] MEDS ORDERED: warfarin 10mg tablet PO ONE (21:00)
[2022-01-29] MEDS: insulin glargine (Lantus) pen - multi-dose SQ SCH (21:05)
[2022-01-29] MEDS: HYDROcodone/acetaminophen 5mg/325mg tablet PO PRN (21:09)
[2022-01-29 22:00] VITALS: BP 153/81
[2022-01-30 07:00] VITALS: BP 152/83
--- NOTE | 2022-01-30 07:01 | NUR ---
Patient in room ORTHO 4014. I have received report from GARRETT RN and had the opportunity to ask questions and assume patient care.
[2022-01-30] MEDS: amox tr/potassium clavulanate 875/125mg TAB PO SCH (08:25)
[2022-01-30] MEDS: docusate sod 100mg capsule PO SCH (08:26)
[2022-01-30] MEDS: OMEGA-3/DHA/EPA/FISH OIL 1 EACH CAPSULE.DR PO SCH (08:26)
[2022-01-30] MEDS: carvedilol 6.25mg tablet PO SCH (08:26)
[2022-01-30] MEDS: furosemide 40mg/4ml inj IV SCH (08:27)
[2022-01-30] MEDS: lisinopril 20mg tablet PO SCH (08:27)
[2022-01-30] MEDS: enoxaparin 40mg/0.4ml syringe SUBCUT SCH (08:28)
[2022-01-30] MEDS: insulin Lispro (HumaLOG) vial - multi-dose SQ SCH (08:49)
[2022-01-30 10:00] VITALS: BP 133/82
[2022-01-30] MEDS ORDERED: AMOX-117 PO (11:02)
--- NOTE | 2022-01-30 13:18 | NUR ---
Patient seen by Dr wilder and wound care. dressing changed to left foot. sutures in place. patient is for DC. All DC instructions given to patient. [facility] were called with regards pathology report. Results are still pending and will be available later today or tomorrow per office staff. patient given walker, Dc home via private car with family member in stable condition.
== END 2022-01-30 12:52 | disposition home or self-care (01) | DRG 617 ==
LOC: ER 08:16 → ED HOLD 13:33 → ORTHO 4S 14:50 → PACU 01-25 17:22 → ORTHO 4S 01-25 18:00
PROVIDERS: ADMIT Family Medicine; ATTEND Family Medicine
PROC: 0Y6W0Z0 Detachment at Left 4th Toe, Complete, Open Approach (ICD-10-PCS; 2022-01-25)
PROC: 0Y6Q0Z0 Detachment at Left 1st Toe, Complete, Open Approach (ICD-10-PCS; principal; 2022-01-25 15:11)
DX: E11.69 Type 2 diabetes mellitus with other specified complication (principal); E11.52 Type 2 diabetes mellitus with diabetic peripheral angiopathy with gangrene; L03.116 Cellulitis of left lower limb; M86.8X7 Other osteomyelitis, ankle and foot; L02.612 Cutaneous abscess of left foot; E11.42 Type 2 diabetes mellitus with diabetic polyneuropathy; F41.9 Anxiety disorder, unspecified; B95.61 Methicillin susceptible Staphylococcus aureus infection as the cause of diseases classified elsewhere; Z20.822 Contact with and (suspected) exposure to COVID-19; I10 Essential (primary) hypertension; I48.91 Unspecified atrial fibrillation; Z86.73 Personal history of transient ischemic attack (TIA), and cerebral infarction without residual deficits; Z88.1 Allergy status to other antibiotic agents; Z88.8 Allergy status to other drugs, medicaments and biological substances; Z79.82 Long term (current) use of aspirin; E87.6 Hypokalemia
CPT/HCPCS: 96365; 99285; Z7506; Z7508; 36415; 71045; 73630; 80048; 80053; 80202; 82948; 83036; 83605; 83735; 83880; 84132; 84145; 85025; 85610; 85651; 86140; 87040; 87070; 87075; 87077; 87081; 87102; 87186; 87811; 93922; 93926; 94640; 94760; 97116; 97161; 97530; A4615; A4618; A6212; A6222; A6223; A6253; A6258; A6446; A6449; A7000; G0378; J1650; J1815; J1940; J1956; J2250; J2543; J2704; J3010; J3370; J3490; J7030; J7040; L3260

== ENCOUNTER 2024-11-07 08:04 | Emergency (ER) | payer OTHER ==
[~2024-11-07] VITALS: Ht 180.3 cm; Wt 111.4 kg
[2024-11-07 08:04] VITALS: TEMP 97.4
[~2024-11-07 08:04] MED LIST changes: +ATOR10TA70 PO; -ATOR20TA66 PO; -CARV6.253 PO; +CARV6.2553 PO; -ENOX100D5 SUBCUT; -LISI10TA27 PO; +LISI20TA28 PO; +METF-438 PO; -METF500T PO; +OMEG1CAP45 PO; +WARF1TAB83 PO; +WARF4TAB69 PO; -WARF7.5T48 PO
--- NOTE | 2024-11-07 08:37 | Physician Documentation ---
History of Present Illness ~ Chief Complaint: Arm Pain Stated Complaint: L ARM PAIN Time Seen by MD: 08:36 Primary Medical Doctor: [facility] 58-year-old male presents to the emergency department reporting that he was lifting a heavy Amazon box on 11/05/2024 when he sustained an injury to the left bicep area. He reports that initially he did not have much pain, but the pain began later that night, and has persisted, to the extent that it is difficult to sleep. On exam, he is noted to have extensive ecchymosis and swelling to the left biceps area. He is on warfarin for history of atrial fibrillation. He denies any other concerns. Tetanus within 5 years: No Medication Reconciliation Allergies: Coded Allergies: cephalexin (Verified Allergy, Intermediate, RASH, 11/07/24) Scheduled Aspirin (Aspir-Low), 1 TAB PO QPM, (Reported) Atorvastatin Calcium (Atorvastatin Calcium), 1 TAB PO QPM, (Reported) Carvedilol (Carvedilol), 1 TAB PO BID, (Reported) Lisinopril (Lisinopril), 2 TAB PO DAILY, (Reported) Metformin HCl (Metformin HCl), 1 TAB PO BID, (Reported) Simpson-3 Fatty Acids/Fish Oil (Simpson-3 1,000 mg Softgel), 1 CAP PO DAILY, (Reported) Warfarin Sodium (Warfarin Sodium), 8 MG PO FRIDAY THRU FRIDAY, (Reported) Warfarin Sodium (Warfarin Sodium), 9 MG PO EVERY FRIDAY, (Reported) Scheduled PRN Hydrocodone Bit/Acetaminophen (Hydrocodon-Acetaminophen 5-325), 1 TAB PO TID PRN PRN for pain Past Medical History Past Medical History: CVA/TIA/Stroke, Atrial Fibrillation, Hypertension, Diabetes, Anxiety Past Surgical History: no surgical history Patient History: Patient reports no known family medical history. Alcohol Use: None Drug Use: none Lives with: Spouse Lives In: Home Occupation: employed Review of Systems ROS As stated above in the HPI, otherwise all systems are reviewed and negative. Physical Exam Vital Signs: Temperature: 97.4, Source: Temporal, Heart Rate: 98, Respiratory Rate: 17, BP: 177/82, Pulse Oximetry: 99, Weight: 111.360 Oxygen Flow Rate: 0 Physical Exam General: Alert, no apparent distress. Neck: Full range of motion. Respiratory: Lungs clear, no respiratory distress. Chest: No accessory muscle use. Cardiovascular: Regularly irregular rate and rhythm, no murmurs. Gastrointestinal: Soft, nontender, nondistended. Bowels sounds present. Extremities: Extensive ecchymosis left bicep area with full ROM of joint of shoulder and elbow. Able to resist flexion at level of forearm. Neurologic: Oriented x4. Psychiatric: Normal mood and affect. Skin: Normal color, warm and dry. Progress Progress Note Patient plan of care was made in conjunction with SHERRIE Birch who did evaluate the patient. Results/Orders Results/Orders Orders - DEBBY CORREIA TELESALES TEAM LEADER BMP (11/07/24 08:54) Us Soft Tissue Mass (11/07/24 08:54) Ortho Orders (11/07/24 ) Lipase (11/07/24 09:14) Liver Panel (11/07/24 09:14) Completed Orders - DEBBY CORREIA TELESALES TEAM LEADER Pt Inr (11/07/24 08:54) Cbc/Diff (11/07/24 08:54) Acetaminophen 325mg Tablet (Tylenol Tabl (11/07/24 09:00) Us Soft Tissue Mass (11/07/24 08:54) Medications Received in ER Medications (Trade) Dose Ordered Sig/Berry Route PRN Reason Start Time Stop Time Status Last Admin Dose Admin (Tylenol tablet) 650 mg ONCE ONCE PO 11/07/24 09:00 11/07/24 09:01 DC 11/07/24 09:47 650 MG Vital Signs 11/07/24 11/07/24 11/07/24 08:04 08:23 10:18 Temp 97.4 Pulse 100 98 80 Resp 16 17 16 B/P (MAP) 174/115 177/82 (113) 175/113 Pulse Ox 99 99 97 O2 Flow Rate 0 0 Laboratory Tests Test 11/07/24 09:14 White Blood Count 8.4 Red Blood Count 4.41 L Hemoglobin 13.7 L Hematocrit 40.2 L Mean Corpuscular Volume 91.1 Mean Corpuscular Hemoglobin 31.1 H Mean Corpuscular Hemoglobin Concent 34.2 Red Cell Distribution Width 13.9 Platelet Count 177 Mean Platelet Volume 8.1 Neutrophils (%) (Auto) 71.8 Lymphocytes (%) (Auto) 15.4 L Monocytes (%) (Auto) 10.7 Eosinophils (%) (Auto) 1.4 Basophils (%) (Auto) 0.7 Neutrophils # (Auto) 6.0 Lymphocytes # (Auto) 1.3 Monocytes # (Auto) 0.9 Eosinophils # (Auto) 0.1 Basophils # (Auto) 0.1 CBC Comment Prothrombin Time 46.9 H INR International Normalized Ratio 5.4 *H Coagulation Comments Sodium Level 133 L Potassium Level 5.2 H Chloride Level 98 L Carbon Dioxide Level 24.1 Anion Gap 11 Blood Urea Nitrogen 14 Creatinine 1.05 Estimated GFR/1.73 m2 72 BUN/Creatinine Ratio 13.3 Glucose Level 126 H Calcium Level 8.5 Total Bilirubin 0.7 Aspartate Amino Transf (AST/SGOT) 32 Alanine Aminotransferase (ALT/SGPT) 40 Alkaline Phosphatase 68 Total Protein 7.6 Albumin 3.6 Globulin 4.0 Albumin/Globulin Ratio 0.9 L Lipase 21 Chemistry Comments Medical Decision Making General Diff Dx:Considerations: Include: Abrasion, Contusion, Fracture, Hematoma, Neurovascular injury, Sprain Shoulder Diff Dx:Consideration: Include: AC separation, Adhesive capsulitis, Arthritis, Bicipital tendonitis, Calcific tendonitis, Contusion, Dislocation Additional Comment This is a 58-year-old male who was found to have a supratherapeutic INR. Ultrasound showed good flow to the distal hand. No vascular compromise. Strength intact to the left forearm when resisted. Large area of ecchymosis overlies the bicep. Patient is instructed to hold his warfarin for the next two days. He will follow up with his primary care on Friday to discuss dosing. Long conversation about the risks of compartment syndrome and also neurovascular injury. If he develops distal tingling or numbness, severe pain, any other concerns, he is to return. Patient will also be referred to ortho. He will be placed in a 90 degree posterior arm splint and sling that has removable. He is instructed to only remove for showering. He is instructed to ice the left biceps area frequently. Departure Time of Disposition: 10:00 Disposition: 01 HOME / SELF CARE / HOMELESS Impression: Primary Impression: Injury of tendon of biceps Additional Impression: Hematoma of left upper extremity Condition: Stable Discharge Instructions: Muscle Strain, [id number], Musculoskeletal Pain Additional Instructions: If you have significant worsening of your pain and swelling or new onset numbness or tingling to the left hand, you must return. Make an appointment with your primary care for recheck within a week. You need a recheck of your potassium within a couple days as it was slightly high in the ER and your sodium was a little low. Drink plenty of fluids. Return if worse, otherwise, request a referral to ortho from your primary care. Your INR was 5.4 today. Please hold your warfarin for two days. Call whomever manages your warfarin and let them know that you were high and told to hold for two days as you will need more frequent checks for awhile. Referrals: NO PRIMARY CARE PROVIDER (PCP) JOSEMANUEL ROSALES MD Prescriptions Hydrocodone Bit/Acetaminophen (Hydrocodon-Acetaminophen 5-325) 5 Mg-325 Mg Tablet 1 TAB PO TID PRN PRN for pain for 5 Days, #15 TAB Prov: DEBBY CORREIA NP 11/07/24 Education Educated: Patient Educated regarding: diagnosis, treatment, prognosis, need for follow up Signature Scribe Signature: no scribe Attestation: The note accurately reflects work and decisions made by me.Debby Gatica NP 11/07/24 08:51 DEBBY CORREIA NP Nov 07, 2024 08:37
[2024-11-07 09:23] LABS: BASOPHILS # (AUTO) 0.1 X10'3 (0-0.2); BASOPHILS % (AUTO) 0.7 % (0-1); EOSINOPHILS # (AUTO) 0.1 X10'3 (0-0.9); EOSINOPHILS % (AUTO) 1.4 % (0-6); HEMATOCRIT 40.2 % (42.0-52.0); HEMOGLOBIN 13.7 g/dl (14.0-17.9); LYMPHOCYTES # (AUTO) 1.3 X10'3 (1.1-4.8); LYMPHOCYTES % (AUTO) 15.4 % (21-51); MEAN CORPUSCULAR HEMOGLOBIN 31.1 PG (27.0-31.0); MEAN CORPUSCULAR HGB CONC 34.2 g/dL (33.0-36.5); MEAN CORPUSCULAR VOLUME 91.1 FL (78-98); MEAN PLATELET VOLUME 8.1 FL (7.4-10.4); MONOCYTES # (AUTO) 0.9 X10'3 (0-0.9); MONOCYTES % (AUTO) 10.7 % (2-12); NEUTROPHILS % (AUTO) 71.8 % (42-75); PLATELET COUNT 177 X10'3 (140-440); RED BLOOD COUNT 4.41 X10'6 (4.70-6.10); RED CELL DISTRIBUTION WIDTH 13.9 % (11.5-14.5); WHITE BLOOD COUNT 8.4 X10'3 (4.5-11.0)
[2024-11-07 09:33] LABS: ALBUMIN 3.6 G/DL (3.4-5.0); ANION GAP 11 (8-16); BLOOD UREA NITROGEN 14 MG/DL (7-18); BUN/CREATININE RATIO 13.3 (10.0-20.0); CALCIUM 8.5 MG/DL (8.5-10.1); CHLORIDE 98 MMOL/L (99-107); CREATININE 1.05 MG/DL (0.60-1.10); GLUCOSE 126 MG/DL (70-104); SODIUM 133 MMOL/L (135-145); TOTAL CARBON DIOXIDE 24.1 MMOL/L (24-32); eCRCL 81 ML/MIN; eGFR 72 ML/MIN
[2024-11-07 09:35] LABS: POTASSIUM 5.2 MMOL/L (3.5-5.1)
[2024-11-07] MEDS: acetaminophen 325mg tablet PO ONE (09:47)
[2024-11-07 10:01] LABS: PROTHROMBIN TIME 46.9 SECONDS (9.0-12.0)
[2024-11-07] MEDS ORDERED: HYDR-3964 PO (10:02)
[2024-11-07 10:04] LABS: INR 5.4 INR
--- NOTE | 2024-11-07 10:17 | RADIOLOGY REPORT ---
Ultrasound of the left shoulder. CLINICAL INDICATION: biceps tendon rupture TECHNIQUE: Multiple real time sonographic images of the thyroid were obtained. COMPARISON: None. FINDINGS: There is a complex fluid collection in the left upper extremity caudal to the shoulder joint measurin g 4.7 x 3.7 cm. No retracted tendon tear seen. IMPRESSION: 1. 4.7 cm complex fluid collection in the left upper extremity which may reflect hematoma in the sett ing of trauma. No retracted tendon tear on the provided images. Recommend MRI of the left shoulder a nd left elbow if there is concern for biceps tendon rupture.
[2024-11-07 10:18] VITALS: BP 175/113; PULSE 80; RESP 16; O2SAT 97
[2024-11-07 10:27] LABS: ALANINE AMINOTRANSFERASE 40 U/L (12-78); ALBUMIN/GLOBULIN RATIO 0.9 (1.1-1.5); ALKALINE PHOSPHATASE 68 IU/L (46-116); ASPARTATE AMINO TRANSFERASE 32 U/L (10-37); BILIRUBIN,TOTAL 0.7 MG/DL (0.1-1.0); LIPASE 21 U/L (16-77); TOTAL PROTEIN 7.6 G/DL (6.4-8.2)
[2024-11-07 10:30] LABS: BILIRUBIN,DIRECT 0.3 MG/DL (0-0.3)
== END 2024-11-07 10:44 | disposition home or self-care (01) ==
LOC: ER 08:04
DX: S40.022A Contusion of left upper arm, initial encounter (principal); I10 Essential (primary) hypertension; E11.9 Type 2 diabetes mellitus without complications; I48.91 Unspecified atrial fibrillation; F41.9 Anxiety disorder, unspecified; Z86.73 Personal history of transient ischemic attack (TIA), and cerebral infarction without residual deficits; Z79.01 Long term (current) use of anticoagulants; Z88.1 Allergy status to other antibiotic agents; Z79.899 Other long term (current) drug therapy; X58.XXXA Exposure to other specified factors, initial encounter; Y93.89 Activity, other specified; Y92.89 Other specified places as the place of occurrence of the external cause; Y99.8 Other external cause status
CPT/HCPCS: 29105; 36415; 76881; 80048; 80076; 83690; 85025; 85610; 99284; A4565; A6446; A6449